=== PATIENT | female | born 1940 | race Caucasian/White ===

== ENCOUNTER → 2018-01-02 | Outpatient (CLI) | payer MEDICARE ==
[2015-04-28 15:00] VITALS: BP 157/64
[~2018-01-02] MED LIST: AMLO5TAB4 PO; ASPI-630 PO; ATEN50TA PO; ATOR20TA PO; CALC1CAP13 PO; CHOL100013 PO; LEVO100T5 PO; LISI-130 PO; LUTE20TA PO; MULT-658 PO; OMEP20CA5 PO; SIMV40TA3 PO; TICA90TA PO; TRIA1CAP3 PO; VERA240C2 PO; VITA1TAB39 PO; [UNRECOGNIZED DRUG - CODE] PO
--- NOTE | 2018-01-02 15:08 | CARD ---
MR#: [id number] Date of Study: 01/02/2018 Ordering Physician: MAKI SKELTON, Referring Physician: MAKI SKELTON, Tech: Yoselin Gonzalez RDCS APPROVED REPORT EXAM: Two-dimensional and M-mode echocardiogram with Doppler and color Doppler. Other Information Quality : Good INDICATION Peripheral Edema Cardiac Disease: CAD 2D DIMENSIONS RVDd3.2 (2.9-3.5cm)Left Atrium(2D)3.7 (1.6-4.0cm) IVSd1.2 (0.7-1.1cm)Aortic Root(2D)3.2 (2.0-3.7cm) LVDd4.4 (3.9-5.9cm)LVOT Diameter2.0 (1.8-2.4cm) PWd1.2 (0.7-1.1cm)LVDs2.7 (2.5-4.0cm) FS (%) 27.0 %SV59.4 ml LVEF(%)55.0 (>50%) Aortic Valve AoV Peak Melchor.144.5cm/sAoV VTI27.5cm AO Peak GR.8.3mmHgLVOT VTI 18.02cm AO Mean GR.4mmHgAVA (VTI)2.15cm2 Mitral Valve MV E Aguzsciu09.2cm/sMV DECEL WTAH343cx MV A Jllpyzbq99.4cm/sE/A Ratio0.9 TDI Lateral E' P. V6.76cm/sMedial E' P. V3.67cm/s E/Lateral E'11.6E/Medial E'21.3 Tricuspid Valve TR P. Glotvene370uw/sRAP ECANORSS2lqBa TR Peak Gr.92yxNoTURX06mwOa Pulmonary Vein S1 Iamyucno96.9cm/sS2 Pxhrvvsu49.47cm/s D2 Tqwqmqae93.5cm/s LEFT VENTRICLE The left ventricle is normal size. There is mild concentric left ventricular hypertrophy. The left ve ntricular systolic function is normal and the ejection fraction is within normal range. The Ejection Fraction is 55%. Septal motion consistent with conduction abnormality. Transmitral Doppler flow patte rn is Grade I-abnormal relaxation pattern. RIGHT VENTRICLE The right ventricle is normal size. The right ventricular systolic function is normal. ATRIA The left atrium size is normal. The right atrium size is normal. The interatrial septum is intact wit h no evidence for an atrial septal defect or patent foramen ovale as noted on 2-D or Doppler imaging. AORTIC VALVE The aortic valve is calcified but opens well. Doppler and Color Flow revealed trace aortic regurgitat ion. There is no significant aortic valvular stenosis. MITRAL VALVE The mitral valve is calcified but opens well. There is no evidence of mitral valve prolapse. There is no mitral valve stenosis. Doppler and Color-flow revealed trace mitral regurgitation. TRICUSPID VALVE The tricuspid valve is normal in structure and function. Doppler and Color Flow revealed trace tricus pid regurgitation. There is mild pulmonary hypertension. The PA pressure was estimated at 30 mmHg. Th ere is no tricuspid valve stenosis. PULMONIC VALVE The pulmonic valve is not well visualized. Doppler and Color Flow revealed no pulmonic valvular regur gitation. There is no pulmonic valvular stenosis. GREAT VESSELS The aortic root is normal in size. The ascending aorta is normal in size. The IVC is normal in size a nd collapses >50% with inspiration. PERICARDIAL EFFUSION There is no evidence of significant pericardial effusion. Critical Notification Critical Value: No <Conclusion> The left ventricular systolic function is normal and the ejection fraction is within normal range. Th e Ejection Fraction is 55%. Septal motion consistent with conduction abnormality. Signed by : Luis Giang, Electronically Approved : 01/02/2018 15:07:10
== END | disposition home or self-care (01) ==
LOC: ECHO 14:22
PROVIDERS: ATTEND Internal Medicine Cardiovascular Disease
DX: I25.10 Atherosclerotic heart disease of native coronary artery without angina pectoris (principal); I27.20 Pulmonary hypertension, unspecified; R60.0 Localized edema
CPT/HCPCS: 93306

== ENCOUNTER 2018-05-20 06:35 | Emergency (ER) | payer MEDICARE ==
[~2018-05-20] VITALS: Ht 162.6 cm; Wt 88.5 kg
--- NOTE | 2018-05-20 06:58 | PHYS DOC ---
Adult General Chief Complaint Chief Complaint: MULTIPLE COMPLAINTS HPI HPI Patient is a 77 year old female who presents with nausea, vomiting, and diarrhea. Patient has had symptoms all night long. She endorses diarrhea with too numerous episodes to count as well as nausea and vomiting. No melena or hematochezia. No hematemesis. Her symptoms started about 2 hours after she ate dinner last night and persisted. She continues to complain of nausea. She complains also of diffuse body aches and myalgias over the same time. No ill contacts. No other persons in the home who ate the same food became ill. She does not complain of abdominal pain. No documented fever but she does have chills. Denies prior history of similar symptoms. She does c/o sternal chest pain but only during the times when she is actively vomiting. Pain is relieved otherwise. She does have prior hx of CAD with 2 stents placed. Review of Systems Review of Systems Constitutional: Denies fever Eyes: Denies change in visual acuity HENT: Denies nasal congestion or sore throat Respiratory: Denies cough or shortness of breath Cardiovascular: No additional information not addressed in HPI GI: Denies abdominal pain : Denies dysuria or hematuria Musculoskeletal: Denies back pain Integument: Denies rash or skin lesions Neurologic: Denies headache Endocrine: Denies polyuria All other systems were reviewed and found to be within normal limits, except as documented in this note. Current Medications Current Medications Current Medications Medications (Trade) Dose Ordered Sig/Ry Start Time Stop Time Status Last Admin Dose Admin Acetaminophen (Tylenol) 650 mg 1X ONCE 05/20/18 10:30 05/20/18 10:35 DC 05/20/18 10:38 650 MG Magnesium Sulfate 50 ml @ 25 mls/hr 1X ONCE 05/20/18 08:30 05/20/18 10:29 DC 05/20/18 08:26 25 MLS/HR Ondansetron HCl (Zofran) 4 mg 1X ONCE 05/20/18 07:00 05/20/18 07:01 DC 05/20/18 07:00 4 MG Prochlorperazine Edisylate (Compazine) 5 mg 1X ONCE 05/20/18 10:30 05/20/18 10:35 DC 05/20/18 10:38 5 MG Sodium Chloride 500 ml @ 500 mls/hr 1X ONCE 05/20/18 11:00 05/20/18 11:59 DC 05/20/18 10:38 500 MLS/HR Allergies Allergies Allergies Coded Allergies Type Severity Reaction Last Updated Verified miconazole Allergy Intermediate 04/27/15 Yes nitrofurantoin Allergy Intermediate 04/27/15 Yes Physical Exam Physical Exam Constitutional: Well developed, well nourished, female who appears uncomfortable 2/2 nausea, but no acute distress, non-toxic appearance HENT: Normocephalic, atraumatic, bilateral external ears normal, oropharynx moist Eyes: PERRLA, EOMI, conjunctiva normal Neck: Normal range of motion, no tenderness Cardiovascular:Heart rate regular rhythm, no murmur Lungs & Thorax: Bilateral breath sounds clear to auscultation Abdomen: Bowel sounds normal, soft, no tenderness Skin: Warm, dry, no erythema, no rash Extremities: No edema Neurologic: Alert and oriented X 3, normal motor function Psychologic: Affect normal Current Patient Data Vital Signs Vital Signs Date Time Temp Pulse Resp B/P (MAP) Pulse Ox O2 Delivery O2 Flow Rate FiO2 05/20/18 11:22 90 16 152/63 (92) 96 Room Air 05/20/18 06:50 99.0 99.0 Lab Values Laboratory Tests Test 05/20/18 06:50 05/20/18 07:40 05/20/18 08:19 05/20/18 10:55 White Blood Count 7.6 x10^3/uL (4.0-11.0) Red Blood Count 4.33 x10^6/uL (3.50-5.40) Hemoglobin 13.9 g/dL (12.0-15.5) Hematocrit 40.0 % (36.0-47.0) Mean Corpuscular Volume 93 fL (79-100) Mean Corpuscular Hemoglobin 32 pg (25-35) Mean Corpuscular Hemoglobin Concent 35 g/dL (31-37) Red Cell Distribution Width 13.6 % (11.5-14.5) Platelet Count 221 x10^3/uL (140-400) Neutrophils (%) (Auto) 94 % (31-73) H Lymphocytes (%) (Auto) 2 % (24-48) L Monocytes (%) (Auto) 4 % (0-9) Eosinophils (%) (Auto) 0 % (0-3) Basophils (%) (Auto) 0 % (0-3) Neutrophils # (Auto) 7.1 x10^3uL (1.8-7.7) Lymphocytes # (Auto) 0.2 x10^3/uL (1.0-4.8) L Monocytes # (Auto) 0.3 x10^3/uL (0.0-1.1) Eosinophils # (Auto) 0.0 x10^3/uL (0.0-0.7) Basophils # (Auto) 0.0 x10^3/uL (0.0-0.2) Segmented Neutrophils % 81 % (35-66) H Band Neutrophils % 16 % (0-9) H Lymphocytes % 2 % (24-48) L Monocytes % 1 % (0-10) Platelet Estimate Adequate (ADEQUATE) Sodium Level 130 mmol/L (136-145) L 123 mmol/L (136-145) L Potassium Level 4.4 mmol/L (3.5-5.1) 4.3 mmol/L (3.5-5.1) Chloride Level 93 mmol/L (98-107) L 92 mmol/L (98-107) L Carbon Dioxide Level 23 mmol/L (21-32) 23 mmol/L (21-32) Anion Gap 14 (6-14) 8 (6-14) Blood Urea Nitrogen 26 mg/dL (7-20) H 24 mg/dL (7-20) H Creatinine 1.0 mg/dL (0.6-1.0) 0.9 mg/dL (0.6-1.0) Estimated GFR (Cockcroft-Gault) 53.5 60.4 Glucose Level 164 mg/dL (70-99) H 130 mg/dL (70-99) H Calcium Level 9.0 mg/dL (8.5-10.1) 8.4 mg/dL (8.5-10.1) L Magnesium Level 1.5 mg/dL (1.8-2.4) L Total Bilirubin 0.9 mg/dL (0.2-1.0) Direct Bilirubin 0.3 mg/dL (0.0-0.2) H Aspartate Amino Transferase (AST) 24 U/L (15-37) Alanine Aminotransferase (ALT) 27 U/L (14-59) Alkaline Phosphatase 102 U/L (46-116) Troponin I Quantitative < 0.017 ng/mL (0.000-0.055) Total Protein 7.8 g/dL (6.4-8.2) Albumin 3.8 g/dL (3.4-5.0) Lipase 149 U/L (73-393) Influenza Type A Antigen Negative (NEGATIVE) Influenza Type B Antigen Negative (NEGATIVE) Urine Collection Type Unknown Urine Color Yellow Urine Clarity Clear Urine pH 5.5 Urine Specific Jones 1.020 Urine Protein 30 mg/dL (NEG-TRACE) Urine Glucose (UA) Negative mg/dL (NEG) Urine Ketones (Stick) Negative mg/dL (NEG) Urine Blood Negative (NEG) Urine Nitrite Negative (NEG) Urine Bilirubin Negative (NEG) Urine Urobilinogen Dipstick 0.2 mg/dL (0.2 mg/dL) Urine Leukocyte Esterase Small (NEG) Urine RBC 0 /HPF (0-2) Urine WBC 1-4 /HPF (0-4) Urine Squamous Epithelial Cells Few /LPF Urine Bacteria Few /HPF (0-FEW) Urine Hyaline Casts Few /HPF Urine Mucus Mod /LPF Test 05/20/18 11:05 Troponin I Quantitative < 0.017 ng/mL (0.000-0.055) Laboratory Tests 05/20/18 06:50 Laboratory Tests 05/20/18 06:50 05/20/18 10:55 EKG EKG No STEMI Interpretation Time: 06:45 Radiology/Procedures Radiology/Procedures [] Course & Med Decision Making Course & Med Decision Making Pertinent Labs and Imaging studies reviewed. (See chart for details) 06:45: Patient is seen and examined. Currently nauseated. Labs, zofran, IVF's , influenza screen ordered. 08:00: Patient feeling improved. IVF's running. Labs pending. Patient was evaluated in the emergency department for symptoms suspicious for gastroenteritis. Given her history of coronary artery disease and stent placement, the patient was observed for an extended period of time. 2 troponins were completed 3 hours apart along with EKGs. There were no findings on her EKG suspicious for ischemia. Her troponin did not elevate. The patient felt much improved after a single dose of Zofran. She was given a total 1.5 L of normal saline in the ER. Her lab panel did not reveal any additional acute findings other than some hypomagnesemia. She was given some magnesium in the emergency room intravenously. A repeat BMP was completed after the IV fluids and her sodium was noted to the 123. This was lower compared to the original sodium. Unclear if this is lab error. The patient has no symptoms and feels at baseline. She is requesting home discharge. Patient is advised to pursue clear liquids for the next 12-18 hours and advance her diet after that. Otherwise return to the ER for any new or worsening symptoms. Dragon Disclaimer Dragon Disclaimer This electronic medical record was generated, in whole or in part, using a voice recognition dictation system. Departure Departure Disposition: HOME, SELF-CARE Condition: GOOD Referrals: RIOS PEREZ MD (PCP) Scripts Ondansetron Hcl (ZOFRAN) 4 Mg Tablet 4 MG PO PRN TID PRN for NAUSEA, #10 nausea/vomiting Prov: SCAR GREGORY DO 05/20/18 Magnesium Oxide (MAGNESIUM OXIDE) 400 Mg Tablet 1 TAB PO BID, #10 TAB 0 Refills Prov: SCAR GREGORY DO 05/20/18 SCAR GREGORY DO May 20, 2018 06:58
[2018-05-20 07:00] LABS: BASO % 0 % (0-3); EOS % 0 % (0-3); HEMOGLOBIN 13.9 g/dL (12.0-15.5); LYMPH # 0.2 x10^3/uL (1.0-4.8); LYMPH % 2 % (24-48); MEAN CORPUSCULAR HEMOGLOBIN 32 pg (25-35); MEAN CORPUSCULAR HGB CONC 35 g/dL (31-37); MEAN CORPUSCULAR VOLUME 93 fL (79-100); MONO # 0.3 x10^3/uL (0.0-1.1); MONO % 4 % (0-9); NEUT # 7.1 x10^3uL (1.8-7.7); NEUT % 94 % (31-73); PLATELET COUNT 221 x10^3/uL (140-400); RED BLOOD COUNT 4.33 x10^6/uL (3.50-5.40); RED CELL DISTRIBUTION WIDTH 13.6 % (11.5-14.5); WHITE BLOOD COUNT 7.6 x10^3/uL (4.0-11.0)
[2018-05-20] MEDS ORDERED: ONDANSETRON PF 4 MG/2 ML VIAL. IV ONE (07:00)
[2018-05-20] MEDS ORDERED: IV NORMAL SALINE 1000ML BAG 1,000 ML IV ONE (07:00)
[2018-05-20 07:10] LABS: GFR 53.5; POTASSIUM 4.4 mmol/L (3.5-5.1)
[2018-05-20 07:16] LABS: ALBUMIN 3.8 g/dL (3.4-5.0); DIRECT BILIRUBIN 0.3 mg/dL (0.0-0.2); MAGNESIUM 1.5 mg/dL (1.8-2.4); TOTAL BILIRUBIN 0.9 mg/dL (0.2-1.0); TOTAL PROTEIN 7.8 g/dL (6.4-8.2)
[2018-05-20 08:00] LABS: % BANDS 16 % (0-9); % LYMPHS 2 % (24-48); % MONOS 1 % (0-10); % SEGS 81 % (35-66); PLT ESTIMATE ADEQUATE (ADEQUATE)
[2018-05-20 08:06] LABS: INFLUENZA A PATIENT NEGATIVE (NEGATIVE); INFLUENZA B PATIENT NEGATIVE (NEGATIVE)
--- NOTE | 2018-05-20 08:13 | EKG ---
[address] [place] [address] Test Date: 2018-05-20 Test Time: 06:44:30 Pat Name: NEELIMA PETERSON Department: Room: Gender: Female Sap Pp Consultant: : 1940 Requested By: SCAR GREGORY Order Number: [id number] Reading MD: Ben Duong Measurements Intervals [place] Rate: 84 P: 138 ND: 166 QRS: -28 QRSD: 126 T: 89 QT: 408 QTc: 486 Interpretive Statements SINUS RHYTHM LEFTWARD AXIS NON SPECIFIC INTRAVENTRICULAR BLOCK ABNORMAL ECG RI6.01 No previous ECG available for comparison Electronically Signed On 05-23-2018 17:17:09 OFFICE INSPECTOR by Ben Duong
[2018-05-20 08:30] LABS: BILIRUBIN,URINE NEGATIVE (NEG); CLARITY,URINE CLEAR; COLOR,URINE YELLOW; NITRITE,URINE NEGATIVE (NEG); PH,URINE 5.5; PROTEIN,URINE 30 mg/dL (NEG-TRACE); UROBILINOGEN,URINE 0.2 mg/dL (0.2 mg/dL)
[2018-05-20] MEDS ORDERED: MAGNESIUM SULFATE 2GM 50 ML IV ONE (08:30)
[2018-05-20 08:37] LABS: HYALINE CASTS, URINE FEW /HPF; SQUAMOUS EPITHELIAL CELL,UR FEW /LPF
[2018-05-20 08:38] LABS: BACTERIA,URINE FEW /HPF (0-FEW); RBC,URINE 0 /HPF (0-2)
[2018-05-20] MEDS ORDERED: PROCHLORPERAZINE 10 MG/2 ML VIAL. IV ONE (10:30)
[2018-05-20] MEDS ORDERED: ACETAMINOPHEN 325 MG TABLET. PO ONE (10:30)
[2018-05-20] MEDS ORDERED: IV NORMAL SALINE 500ML BAG 500 ML IV ONE (11:00)
[2018-05-20 11:22] VITALS: BP 152/63
[2018-05-20 11:29] LABS: CALCIUM 8.4 mg/dL (8.5-10.1); CREATININE 0.9 mg/dL (0.6-1.0); GFR 60.4; POTASSIUM 4.3 mmol/L (3.5-5.1)
--- NOTE | 2018-05-20 11:30 | EKG ---
[facility] [address] [place] [address] Test Date: 2018-05-20 Test Time: 11:02:29 Pat Name: NEELIMA PETERSON Department: Room: Gender: Female Asbestos Surveyor: : 1940 Requested By: SCAR GREGORY Order Number: [id number] Reading MD: Ben Duong Measurements Intervals [place] Rate: 94 P: 31 NC: 192 QRS: -24 QRSD: 128 T: 114 QT: 402 QTc: 509 Interpretive Statements SINUS RHYTHM LEFTWARD AXIS NON SPECIFIC INTRAVENTRICULAR BLOCK Electronically Signed On 05-23-2018 17:18:44 TUBE BENDER by Ben Duong
[2018-05-20] MEDS ORDERED: ONDA4TAB7 PO (11:50)
[2018-05-20] MEDS ORDERED: MAGN400T3 PO (11:50)
== END 2018-05-20 12:00 | disposition home or self-care (01) ==
LOC: ER 06:35
DX: R11.2 Nausea with vomiting, unspecified (principal); R19.7 Diarrhea, unspecified; M79.10 Myalgia, unspecified site
CPT/HCPCS: 36415; 80048; 80076; 81001; 83690; 83735; 84484; 85007; 85025; 87804; 93005; 96361; 96365; 96366; 96375; 99284; J0780; J2405; J3475; J7030; J7040

== ENCOUNTER → 2021-09-21 | Outpatient (CLI) | payer MEDICARE ==
[2019-07-11 11:00] VITALS: BP 115/58
[~2021-09-21] MED LIST changes: +ALBU2.5V8 NEB; +Areds; +CLOP75TA PO; +DILT180C2 PO; +DOCU-148 PO; +MAG30ORA2 PO; +MAGN400T48 PO; +METO-247 PO; +ONDA4TAB7 PO; +REGADENOSON 0.4 MG/5 ML DISP.SYRIN. IV ONE; +SIMV40TA18 PO; -SIMV40TA3 PO
--- NOTE | 2021-09-21 18:19 | RAD ---
MR#: [id number] Date of Study: 09/21/2021 Ordering Physician: MAKI LOCKE, Referring Physician: ADOLPH YOST Tech: RT Hernesto Martinez) (N) APPROVED REPORT Test Type: Pharmacological Stress Nurse/Tech: Marie Appiah RN Test Indications: CAD Cardiac History: stents x 3 2014, HTN Medications: See Electronic Medical Record Medical History: See Electronic Medical Record Resting ECG: SB BBB Resting Heart Rate: 47 bpm Resting Blood Pressure: 158/62mmHg Pretest Chest Pain: None Nurse/Tech Notes Lungs CTA, S1S2 Consent: The procedure was explained to the patient in lay terms. Informed consent was witnessed. Humberto eout was entered into Videdressing. History and Stress Test performed by RT Juan (R) (N) Pharm. Details Pharmacologic stress testing was performed using 0.4mg per 5ml of regadenoson given intravenously ove r 7-10 seconds. Stress Symptoms No chest pain or symptoms. POST EXERCISE Reason for Termination: Infusion complete Max HR: 72 bpm Max Blood Pressure: 169/59mmHg Blood Pressure response to exercise: Normal blood pressure response during stress. Heart Rate response to exercise: normal response Chest Pain: No. Arrhythmia: No. ST Change: No. INTERPRETATION Stress EKG Conclusion: The resting EKG shows a sinus bradycardia with a left bundle branch block. The stress echo shows no significant changes from baseline. Abnormal baseline EKG but no EKG evidence of stress-induced ischemia. Imaging Protocol IMAGE PROTOCOL: Rest Tc-99m/stress Tc-99m 1 day Rest: Stress: Viability: Radiopharm.Tc99m YsqfftaqxRe70w Sestamibi Fdsi30dKg 33mCi Duration 15min. 10min. Img Date 09/21/2021 09/21/2021 Inj-Img Bdpj07yls. 60min. Rest Admin Site:IV - Right AntecubitalAdministrator:ROSA MARIA Raymond, ARRT (R)(N) Stress Admin Site: IV - Right AntecubitalAdministrator: ROSA MARIA Raymond, ARRT (R)(N) STRESS DATA End Diast. Vol.166.0mlAv. Heart Rate50.0bpm End Syst. Vol.81.0mlCO Index BSA0.0L/min Myocardial Jokb865.0gEject. Gyhapxdu68.0% Stress Rates Pk. Fill Rate1.41EDV/secLVtime Pk. Fill 226.52msec Pk. Empty Rate2.25ESV/secLVtime Pk. Ymcaa948.32msec 1/3 Pk. Fill0.66EDV/sec Stress Scores Regional WT1.00Summed WT8.00 Regional WM0.00Summed WM9.00 LV Perfusion The stress scans showed no significant defects. The rest scans showed no significant defects. Nuclear imaging shows no reversible ischemia or infarct. Wall Motion LV systolic function is intact with an ejection fraction of 51%. LV Perf. Quant 17 Seg. SSS0.00 17 Seg. SRS2.00 17 Seg. SDS0.00 Stress Defect Extent (% LAD)0.00Rest Defect Extent (% LAD)0.00Rev. Defect Extent (% LAD)0.00 Stress Defect Extent (% LCX) 0.00Rest Defect Extent (% LCX)0.00Rev. Defect Extent (% LCX)0.00 Stress Defect Extent (% RCA)0.00Rest Defect Extent (% RCA)0.00Rev. Defect Extent (% RCA)0.00 Stress Defect Extent (% MARTHA)0.00Rest Defect Extent (% MARTHA)0.00Rev. Defect Extent (% MARTHA)0.00 Conclusion 1. Abnormal baseline EKG but no EKG evidence of stress-induced ischemia. 2. Nuclear imaging shows no reversible ischemia or infarct. 3. LV systolic function is intact with an ejection fraction of 51%. 4. Moderately low to low risk Lexiscan nuclear stress test. Signed by : Maki Locke MD Electronically Approved : 09/21/2021 18:19:15
== END ==
LOC: NM 10:11
PROVIDERS: ATTEND Internal Medicine Cardiovascular Disease
DX: R94.31 Abnormal electrocardiogram [ECG] [EKG] (principal); I25.10 Atherosclerotic heart disease of native coronary artery without angina pectoris
CPT/HCPCS: 78452; 93017; A9500; J2785